=== PATIENT | female | born 1960 | race Caucasian/White ===

== ENCOUNTER 2021-10-31 10:25 | Emergency (ER) | payer OTHER, SELFPAY ==
[2021-10-31 10:32] VITALS: BP 132/69; PULSE 74; RESP 20; TEMP 36.9; O2SAT 99
--- NOTE | 2021-10-31 10:56 | ED.ALLEREA ---
HPI - Allergic Reaction General Chief complaint: Allergic Reaction Stated complaint: itching Time Seen by Provider: 10/31/21 10:29 Source: patient, family and RN notes reviewed Limitations: no limitations History of Present Illness HPI narrative: 61-year-old female with history of bipolar disorder presenting to the emergency department for evaluation of a persistent allergic reaction. Patient first noticed that she was developing hives and itching approximately 3 weeks ago. Patient did have follow-up with a primary care physician. Patient was initially started on a triamcinolone cream which she feels was not helpful. Patient had follow-up again with her primary care physician and was started on 20 mg of p.o. prednisone daily along with Benadryl. Patient states since that time the rash has continued to worsen. Patient has multiple areas of excoriation where she is unable to stop her self from scratching. Patient denies any chest pain or shortness of breath. Patient denies any facial swelling including her tongue lips or airway. Patient denies any change in her medications. Related Data Allergies Allergy/AdvReac Type Severity Reaction Status Date / Time No Known Allergies Allergy Unverified 10/31/21 10:39 Review of Systems Review of Systems: CONSTITUTIONAL: Denies fever, chills, or sweats. EYES: Denies visual changes, redness, or discharge. ENT: Denies rhinorrhea, congestion, sore throat, or otalgia. CARDIOVASCULAR: Denies chest pain, palpitations, or edema. RESPIRATORY: Denies cough or dyspnea. GASTROINTESTINAL: Denies abdominal pain, nausea, vomiting, or diarrhea. GENITOURINARY: Denies dysuria or hematuria. SKIN: See HPI MUSCULOSKELETAL: Denies back pain, joint pain, or myalgia. NEUROLOGIC: Denies headache, numbness, or weakness. All systems reviewed & are unremarkable except as noted in HPI and below [facility] Family History Family History (Updated 02/14/12 @ 09:53 by DOCTOR UNKNOWN) Other Carcinoma of colon Diabetes mellitus Family history of coronary artery disease Family history of malignant neoplasm of uterus Social History Social History Alcohol intake: never Exam Narrative: APPEARANCE: Well appearing, no pain, no distress, well-nourished. HEAD: normocephalic, atraumatic. EYES: PERRLA/EOMI, conjunctivae clear. NOSE: Normal no drainage THROAT: Pharynx clear, no exudate. NECK: Supple. No adenopathy, no masses. RESPIRATORY: Airway patent, respirations nonlabored. Clear to auscultation bilaterally, no rales, rhonchi, wheezing. CARDIOVASCULAR: Regular rate and rhythm without murmurs rubs or gallops. ABDOMINAL: Soft, nontender, nondistended, normal bowel sounds MUSCULOSKELETAL: Moves all extremities. Strength/ROM intact, No edema, No calf tenderness. NEURO: Alert. Cranial nerves II through XII intact. Grossly intact SKIN: Multiple areas of excoriated hives on arms and legs. Rash is urticarial. Course Course Emergency Course: Patient initially denied any new soaps or detergents but later did recall that she is using a new fabric softener. Patient was advised to rewash her clothes without using the fabric softener. Patient is being started on a Medrol Dosepak. Vital Signs Vital signs: Vital Signs Temperature 98.5 F 10/31/21 10:32 Pulse Rate 74 10/31/21 10:32 Respiratory Rate 20 10/31/21 10:32 Blood Pressure 132/69 10/31/21 10:32 Pulse Oximetry 99 10/31/21 10:32 Temperature 98.5 F 10/31/21 10:32 Pulse Rate 74 10/31/21 10:32 Respiratory Rate 20 10/31/21 10:32 Blood Pressure 132/69 10/31/21 10:32 Pulse Oximetry 99 10/31/21 10:32 MDM - Allergic Reaction Differential Diagnosis Differential diagnosis: Likely allergic reaction Discharge Plan Discharge Clinical Impression: Urticaria Allergic reaction Qualifiers: Encounter type: initial encounter Qualified Code(s): T78.40XA - Allergy, unspecified, initial encounter Patient Disposition: Home, Self-Care
[2021-10-31] MEDS: DEXAMETHASONE 2 MG TABLET 10 MG PO (11:00)
[2021-10-31] MEDS: diphenhydrAMINE HCl CAP 25 MG CAPSULE 50 MG PO (11:00)
== END 2021-10-31 11:15 | disposition home or self-care (01) ==
PROVIDERS: Emergency Provider Emergency Medicine; PCP Internal Medicine
DX: L50.0 Allergic urticaria (principal); T78.40XA Allergy, unspecified, initial encounter
CPT/HCPCS: 99283; A9270; J8540

== ENCOUNTER 2023-03-13 17:46 | Emergency (ER) | payer OTHER, SELFPAY ==
[2023-03-13 17:48] VITALS: BP 112/74; PULSE 100; RESP 18; TEMP 37; O2SAT 99
--- NOTE | 2023-03-13 18:12 | ED.EXTPRO ---
HPI - Extremity Problem General Chief complaint: Extremity Problem,Nontraumatic Stated complaint: lower right leg injury Time Seen by Provider: 03/13/23 17:57 History of Present Illness HPI Narrative: 60-year-old female present emergency department for evaluation of right calf pain. Patient noticed that she had some pain globally in her right calf and then noticed that she did have some ecchymosis at that site. Patient does have history of varicose veins. Patient denies any falls or injuries. Patient reports that she has no pain unless she palpates the site of ecchymosis. Patient states she was really concerned that maybe she was having some tingling in her foot but states this is resolved. Patient has no prior history of PE or DVT and is not on any blood thinners. Related Data Allergies Allergy/AdvReac Type Severity Reaction Status Date / Time No Known Allergies Allergy Unverified 10/31/21 10:39 Review of Systems Review of Systems: All systems reviewed & are unremarkable except as noted in HPI and below [facility] Past Medical History Medical History (Updated 03/14/23 @ 00:01 by Mirian Smith) Right calf pain Family History Family History (Updated 02/14/12 @ 09:53 by DOCTOR UNKNOWN) Other Carcinoma of colon Diabetes mellitus Family history of coronary artery disease Family history of malignant neoplasm of uterus Social History Social History Alcohol intake: never Exam Narrative: APPEARANCE: Well appearing, no pain, no distress, well-nourished. HEAD: normocephalic, atraumatic. EYES: PERRLA/EOMI, conjunctivae clear. NOSE: Normal no drainage NECK: Supple. No adenopathy, no masses. RESPIRATORY: Airway patent, respirations nonlabored. Clear to auscultation bilaterally, no rales, rhonchi, wheezing. CARDIOVASCULAR: Regular rate and rhythm without murmurs rubs or gallops. ABDOMINAL: Soft, nontender, nondistended, normal bowel sounds MUSCULOSKELETAL: Moves all extremities. Strength/ROM intact, No edema, focal calf tenderness and ecchymosis NEURO: Alert. Cranial nerves II through XII intact. Grossly intact SKIN: Hematoma and ecchymosis to right posterior calf with no lower extremity edema or erythema Course Course Emergency Course: 62-year-old female presented ED for evaluation of focal right calf pain at a site of ecchymosis. Suspect varicose vein or superficial vein injury with subcutaneous hematoma. Patient states she is able to present to the emergency department tomorrow for an ultrasound in the morning. Low concern for DVT. Low concern for cellulitis. Vital Signs Vital signs: Vital Signs Temperature 98.6 F 03/13/23 17:48 Pulse Rate 100 03/13/23 17:48 Respiratory Rate 18 03/13/23 17:48 Blood Pressure 112/74 03/13/23 17:48 Pulse Oximetry 99 03/13/23 17:48 Temperature 98.6 F 03/13/23 17:48 Pulse Rate 100 03/13/23 17:48 Respiratory Rate 18 03/13/23 17:48 Blood Pressure 112/74 03/13/23 17:48 Pulse Oximetry 99 03/13/23 17:48 Discharge Plan Discharge Clinical Impression: Hematoma, Right calf pain Patient Disposition: Home, Self-Care Condition: Stable Instructions: Antibiotic Form, Leg Sprain (ED), Hematoma (ED) Additional Instructions: You have an ultrasound ordered for tomorrow morning (03/14/2023) at 7:30 AM. Please present to the hospital around 7 AM. Prescriptions: No Action methylprednisolone [Medrol (Naif)] 4 mg tablets,dose pack See Rx Instructions .ROUTE .COMPLEX Qty: 21 0RF Rx Instructions: orally per package directions Follow-up/Referrals: Irvin Mercado MD [Primary Care Provider] -
== END 2023-03-13 18:42 | disposition home or self-care (01) ==
PROVIDERS: Emergency Provider Emergency Medicine; PCP Internal Medicine
DX: M79.661 Pain in right lower leg (principal); S80.11XA Contusion of right lower leg, initial encounter; X58.XXXA Exposure to other specified factors, initial encounter
CPT/HCPCS: 99282

== ENCOUNTER 2023-03-14 07:09 | Outpatient (CLI) | payer OTHER, SELFPAY ==
--- NOTE | ~2023-03-14 | US_ITS ---
EXAMINATION: US venous doppler [facility] DATE: 03/14/2023 07:54 INDICATION: Lower limb pain TECHNIQUE: Grayscale ultrasound images without and with compression and Doppler ultrasound images of the bilateral lower extremity veins were obtained. COMPARISON: None. FINDINGS: The visualized portions of right common femoral vein, profunda (deep) femoral vein, femoral vein, pop liteal vein, posterior tibial veins, peroneal veins, gastrocnemius vein and greater saphenous vein ou tflow are patent. There is a patent serpiginous and compressible varicose vein in the subcutaneous fa t at the region of maximal pain at the proximal posterior right calf. The visualized portions of left common femoral vein, profunda femoral vein, femoral vein, popliteal v ein, posterior tibial veins, peroneal veins, gastrocnemius vein and greater saphenous vein outflow ar e patent. IMPRESSION: 1. No deep venous thrombosis in either lower limb. Reviewed, dictated and finalized at location A.
== END 2023-03-14 07:10 | disposition home or self-care (01) ==
PROVIDERS: PCP Internal Medicine; Visit Provider Internal Medicine
DX: M79.661 Pain in right lower leg (principal)
CPT/HCPCS: 93970